=== PATIENT | female | born 1970 | race Asian ===

== ENCOUNTER → 2020-01-15 | Outpatient (CLI) | payer OTHER ==
[2020-01-15 10:02] LABS: CORRECTED WBC 5.8 thou/uL (4.0-11.0); HEMATOCRIT 42.3 % (37.0-47.0); HEMOGLOBIN 14.8 gm/dL (12.0-15.0); MCV 91.6 fL (80.0-100.0); PLATELET COUNT 301 thou/uL (150-400); RBC 4.62 mil/uL (4.20-5.00); RDW 13.4 % (10.5-14.5); WBC 5.8 thou/uL (4.0-11.0)
[2020-01-15 10:03] LABS: BASOPHILS 0.6 % (0.0-2.0); EOSINOPHILS 0.8 % (0.0-3.0); LYMPHOCYTES 25.6 % (24.0-44.0); MONOCYTES 6.9 % (1.0-8.0); POLYS 66.1 % (36.0-66.0)
[2020-01-15 10:26] LABS: ALBUMIN 3.7 g/dL (3.4-5.0); ANION GAP 7 mmol/L (7-16); BUN 11 mg/dL (7-18); CHLORIDE 104 mmol/L (98-107); CHOLESTEROL 210 mg/dL (<200); CO2 29 mmol/L (21-32); CREATININE 0.6 mg/dL (0.6-1.0); GLUCOSE 95 mg/dL (74-106); HDL CHOLESTEROL 77 mg/dL (>40); LDL CHOLESTEROL 126 mg/dL (<100); SGOT 19 U/L (15-37); SGPT 38 U/L (30-65); SODIUM 140 mmol/L (136-145); TC:HDL 2.7 Ratio (Not establshd); TOTAL BILIRUBIN 0.6 mg/dL (0.2-1.0); TOTAL PROTEIN 7.1 g/dL (6.4-8.2); TRIGLYCERIDE 38 mg/dL (<150); VLDL 8 mg/dL (<40)
[2020-01-16 02:06] LABS: GLYCOHEMOGLOBIN (HGB A1C) 5.7 % (4.8-5.6)
== END ==
LOC: LABMALL 08:14
PROVIDERS: ATTEND Internal Medicine
DX: Z00.00 Encounter for general adult medical examination without abnormal findings (principal); E55.9 Vitamin D deficiency, unspecified; E03.9 Hypothyroidism, unspecified

== ENCOUNTER → 2020-03-12 | Outpatient (CLI) | payer OTHER | LOC: LAB 10:01 | PROVIDERS: ATTEND Internal Medicine | DX: E03.9 Hypothyroidism, unspecified (principal) ==

== ENCOUNTER → 2020-06-11 | Outpatient (CLI) | payer OTHER ==
[2020-06-11 11:55] LABS: ABSOLUTE NEUTROPHILS 3.9 thou/uL (1.4-8.2); BASOPHILS 0.5 % (0.0-2.0); EOSINOPHILS 0.6 % (0.0-3.0); HEMATOCRIT 41.6 % (37.0-47.0); HEMOGLOBIN 13.8 gm/dL (12.0-15.0); LYMPHOCYTES 21.4 % (24.0-44.0); MCH 30.7 pg (26.0-34.0); MCHC 33.1 g/dL (28.0-37.0); MCV 92.6 fL (80.0-100.0); MONOCYTES 7.4 % (1.0-8.0); PLATELET COUNT 313 thou/uL (150-400); POLYS 70.1 % (36.0-66.0); RBC 4.49 mil/uL (4.20-5.00); RDW 12.7 % (10.5-14.5); WBC 5.5 thou/uL (4.0-11.0)
[2020-06-11 11:58] LABS: CALCIUM 9.3 mg/dL (8.5-10.1); CREATININE 0.6 mg/dL (0.6-1.0); POTASSIUM 3.9 mmol/L (3.5-5.1)
[2020-06-11 20:07] LABS: T4 (THYROXINE) 2.9 ug/dL (4.5-12.0)
== END ==
LOC: LAB 10:34
DX: Z00.00 Encounter for general adult medical examination without abnormal findings (principal); E03.9 Hypothyroidism, unspecified